=== PATIENT | male | born 1970 | race Caucasian/White ===

== ENCOUNTER 2017-09-21 14:07 | Emergency (ER) | payer BC ==
[~2017-09-21] VITALS: Ht 182.9 cm; Wt 85.3 kg
--- NOTE | 2017-09-21 13:48 | Emergency Room Report ---
History of Present Illness General Source: Patient, EMS Present Illness HPI The patient is a 46-year-old male brought in by EMS after reported seizure. Patient prior history of seizure disorder and takes Topamax as well as propranolol. The patient had recently quit drinking alcohol. He had prior history of seizures. Patient states his last drink was yesterday. Patient had been noted by EMS to have elevated heart rate. The patient denies any current locations of pain to his having fever. Allergies: Coded Allergies: No Known Allergies (Verified , 11/22/07) Patient History Past Medical History: see triage record Reviewed Nursing Documentation: PMH: Agreed, PSxH: Agreed Review of Systems All Other Systems: negative except mentioned in HPI Physical Exam Sp02 EP Interpretation: reviewed, normal General Appearance: normal inspection, well appearing, no apparent distress, alert, GCS 15 Head: atraumatic ENT: normal ENT inspection, hearing grossly normal, normal voice, other - tongue abrasion Neck: normal inspection, full range of motion, supple, no bony tend Respiratory: normal inspection, lungs clear, normal breath sounds, no respiratory distress, no retraction, no wheezing Cardiovascular #1: regular rate, rhythm, no edema Gastrointestinal: normal inspection, normal bowel sounds, non tender, soft, no guarding, no hernia Genitourinary: no CVA tenderness Musculoskeletal: normal inspection, back normal, normal range of motion Neurologic: normal inspection, alert, oriented x3, responsive, hurricane tracker III-XII nml as tested, speech normal Psychiatric: normal inspection, judgement/insight normal, mood/affect normal Skin: normal inspection, normal color, no rash Medical Decision Making Diagnostic Impression: Primary Impression: Seizure disorder Additional Impression: Alcohol withdrawal ER Course Patient presented for seizure. The differential diagnosis included was not limited to arrhythmia, thyroid storm, sepsis, anemia, myocardial infarction, alcohol withdrawal, stimulant abuse, caffeine overdose among others. The patient presented with signs consistent with alcohol withdrawal. Patient was given IV phenobarbital as well as IV thiamine and IV fluids. the patient improvement of his tremulousness. The patient states that he has a baseline tachycardia. This confirmed by his . Patient was advised not to drink alcohol. He was advised not to Drive or operate heavy machinery. Seizure report was sent to the [facility] Patient was noted to have improvement in his tachycardia. The patient is advised to follow up with primary care doctor in 1 -2 days. Patient is advised to return if any worsening condition or if any changes in status that are concerning. This report is dictated with [employer] head librarian software which may occasionally lead to discrepancies related to use of this software. Labs Test 09/21/17 14:40 White Blood Count 3.4 K/UL (4.8-10.8) Red Blood Count 4.50 M/UL (4.70-6.10) Hemoglobin 15.6 G/DL (14.2-18.0) Hematocrit 46.4 % (42.0-52.0) Mean Corpuscular Volume 103 FL (80-99) Mean Corpuscular Hemoglobin 34.5 PG (27.0-31.0) Mean Corpuscular Hemoglobin Concent 33.5 G/DL (32.0-36.0) Red Cell Distribution Width 12.1 % (11.6-14.8) Platelet Count 85 K/UL (150-450) Mean Platelet Volume 11.2 FL (6.5-10.1) Neutrophils (%) (Auto) % (45.0-75.0) Lymphocytes (%) (Auto) % (20.0-45.0) Monocytes (%) (Auto) % (1.0-10.0) Eosinophils (%) (Auto) % (0.0-3.0) Basophils (%) (Auto) % (0.0-2.0) Sodium Level 136 MMOL/L (136-145) Potassium Level 3.8 MMOL/L (3.5-5.1) Chloride Level 99 MMOL/L (98-107) Carbon Dioxide Level 19 MMOL/L (21-32) Anion Gap 18 mmol/L (5-15) Blood Urea Nitrogen 5 mg/dL (7-18) Creatinine 0.9 MG/DL (0.55-1.30) Estimat Glomerular Filtration Rate > 60 mL/min (>60) Glucose Level 160 MG/DL (74-106) Calcium Level 8.5 MG/DL (8.5-10.1) Total Bilirubin 2.3 MG/DL (0.2-1.0) Aspartate Amino Transf (AST/SGOT) 150 U/L (15-37) Alanine Aminotransferase (ALT/SGPT) 214 U/L (12-78) Alkaline Phosphatase 51 U/L (46-116) Troponin I 0.005 ng/mL (0.000-0.056) Total Protein 8.3 G/DL (6.4-8.2) Albumin 4.2 G/DL (3.4-5.0) Globulin 4.1 g/dL Albumin/Globulin Ratio 1.0 (1.0-2.7) EKG Diagnostic Results Rate: tachycardiac - 152 ST Segments: no acute changes ASA given to the pt in ED: No Rhythm Strip Diag. Results EP Interpretation: yes Rhythm: no PVC's, no ectopy, other - sinus tachycardia Status: improved Disposition: HOME, SELF-CARE Condition: Stable Scripts Chlordiazepoxide Hcl (CHLORDIAZEPOXIDE HCL) 25 Mg Capsule 25 MG PO THREE TIMES A DAY for For Anxiety, #20 CAP Prov: Edson Galindo 09/21/17 Edson Galindo Sep 21, 2017 13:48
[~2017-09-21 14:07] MED LIST: ACETAMINOPHEN-1 EAC1 ORAL; BACTRIM DS TAB1 EAC1 ORAL; ERYTHROMYCIN3.5 GM LEFT EYE
[2017-09-21 15:06] LABS: MEAN CORPUSCULAR HEMOGLOBIN 34.5 PG (27.0-31.0); MEAN CORPUSCULAR HGB CONC 33.5 G/DL (32.0-36.0); MEAN CORPUSCULAR VOLUME 103 FL (80-99); MEAN PLATELET VOLUME 11.2 FL (6.5-10.1); PLATELET COUNT 85 K/UL (150-450); RED CELL DISTRIBUTION WIDTH 12.1 % (11.6-14.8); WHITE BLOOD COUNT 3.4 K/UL (4.8-10.8)
[2017-09-21 15:17] VITALS: BP 136/82
[2017-09-21 15:23] LABS: CHLORIDE 99 MMOL/L (98-107); POTASSIUM 3.8 MMOL/L (3.5-5.1); SODIUM 136 MMOL/L (136-145)
[2017-09-21] MEDS ORDERED: Thiamine HCl 100 MG in D5W 55 ML IVPB ONE (15:30)
[2017-09-21] MEDS ORDERED: Thiamine HCl 100mg/ml 2 ml Inj ONE (15:31)
[2017-09-21 15:32] LABS: ANION GAP 18 mmol/L (5-15); CALCIUM 8.5 MG/DL (8.5-10.1); CARBON DIOXIDE 19 MMOL/L (21-32); CREATININE 0.9 MG/DL (0.55-1.30); GLOMERULAR FILTRATION RATE > 60 mL/min (>60)
[2017-09-21 15:42] LABS: ALANINE AMINOTRANSFERASE 214 U/L (12-78); ASPARTATE AMINO TRANSFERASE 150 U/L (15-37); TOTAL PROTEIN 8.3 G/DL (6.4-8.2)
[2017-09-21 16:24] LABS: BILIRUBIN,DIRECT 0.3 MG/DL (0.0-0.3)
[2017-09-21 16:25] LABS: BAND NEUTROPHILS % (MANUAL) 2 % (0-8); LYMPHOCYTES % (MANUAL) 6 % (20-45); MACROCYTES 1+; NEUTROPHILS % (MANUAL) 85 % (45-75); TOTAL CELLS COUNTED 100
[2017-09-21 16:26] LABS: BASOPHILS % (MANUAL) 0 % (0-2); EOSINOPHILS % (MANUAL) 0 % (0-3); PLATELET ESTIMATE DECREASED; PLATELET MORPHOLOGY NORMAL
[2017-09-21 16:54] LABS: ALCOHOL < 3 mg/dL
[2017-09-21] MEDS ORDERED: LORazepam Inj 2mg/ml 1ml IV ONE (17:30)
[2017-09-21] MEDS ORDERED: CHLORDIAZEPOXID25 MG PO (17:49)
[2017-09-21 18:12] VITALS: BP 136/82
--- NOTE | 2017-09-22 14:55 | Cardiology Report ---
APPROVED REPORT EKG Measurement Heart [id number] Sinus tachycardia Nonspecific T wave abnormality Abnormal ECG
== END 2017-09-21 18:12 | disposition home or self-care (01) ==
LOC: EDBD 14:07 → EMR 15:40
DX: G40.909 Epilepsy, unspecified, not intractable, without status epilepticus (principal); F10.239 Alcohol dependence with withdrawal, unspecified; Z79.899 Other long term (current) drug therapy
CPT/HCPCS: 36415; 80053; 82248; 84484; 85007; 85025; 93005; 96361; 96365; 96375; 96376; 99284; G0480; J2560; 80329

== ENCOUNTER 2018-03-27 12:56 | Emergency (ER) | payer BC ==
[~2018-03-27] VITALS: Ht 182.9 cm; Wt 95.3 kg
[~2018-03-27 12:56] MED LIST changes: +CHLORDIAZEPOXID25 MG PO
[2018-03-27] MEDS ORDERED: THIAMINE HCL100 MG ORAL (13:06)
[2018-03-27] MEDS ORDERED: VITAMIN D-32000 UNI1 PO (13:06)
[2018-03-27] MEDS ORDERED: VITAMIN E100 UNI2 ORAL (13:06)
[2018-03-27 13:26] VITALS: BP_SYST 146; BP_SYST 151; BP_DIAS 100; BP_DIAS 102
--- NOTE | 2018-03-28 08:49 | Emergency Room Report ---
History of Present Illness General Chief Complaint: Alcohol Intoxication Source: Patient Present Illness Allergies: Coded Allergies: No Known Allergies (Verified , 11/22/07) Nursing Documentation-PMH Hx Cardiac Problems: No Hx Hypertension: Yes Hx Pacemaker: No Hx Asthma: No Hx Seizures: Yes Physical Exam Vital Signs Date Time Temp Pulse Resp B/P (MAP) Pulse Ox O2 Delivery O2 Flow Rate FiO2 03/27/18 12:59 98.5 134 15 146/100 93 Room Air 98.4 Medical Decision Making Diagnostic Impression: Primary Impression: Acute alcoholic intoxication ER Course Patient left without being seen Last Vital Signs Date Time Temp Pulse Resp B/P (MAP) Pulse Ox O2 Delivery O2 Flow Rate FiO2 03/27/18 13:26 123 16 151/102 94 Room Air 03/27/18 13:26 98.5 98.4 Status: unchanged Disposition: LEFT W/OUT BEING SEEN Condition: Stable Referrals: NOT APPLICABLE THIS PATIENT,RE (PCP) Ervin Yeung MD Mar 28, 2018 08:48
== END 2018-03-27 13:26 | disposition left against medical advice (07) ==
LOC: EMR 13:20
DX: F10.129 Alcohol abuse with intoxication, unspecified (principal); I10 Essential (primary) hypertension; Z53.21 Procedure and treatment not carried out due to patient leaving prior to being seen by health care provider
CPT/HCPCS: 99281

== ENCOUNTER 2019-01-05 15:35 | Emergency (ER) | payer BC ==
[~2019-01-05] VITALS: Ht 175.3 cm; Wt 81.6 kg
[~2019-01-05 15:35] MED LIST changes: +THIAMINE HCL100 MG ORAL; +VITAMIN D-32000 UNI1 PO; +VITAMIN E100 UNI2 ORAL
--- NOTE | 2019-01-05 16:10 | Emergency Room Report ---
History of Present Illness General Chief Complaint: Alcohol Intoxication Source: Patient Present Illness HPI Patient is a 48-year-old male who presented after increased generalized weakness and palpitations. Patient reports having increased generalized pain as well as rapid heartbeat. He reports having prior history of alcohol abuse and states he normally drinks 2 bottles of alcohol daily. He reports having increased tremulousness as well as increased shaking for the past few days. He states he last had alcohol just prior to arrival. Allergies: Coded Allergies: No Known Allergies (Verified , 11/22/07) Patient History Past Medical History: see triage record Reviewed Nursing Documentation: PMH: Agreed; PSxH: Agreed Nursing Documentation-PMH Hx Cardiac Problems: No Hx Hypertension: Yes Hx Pacemaker: No Hx Asthma: No Hx Seizures: Yes Review of Systems All Other Systems: negative except mentioned in HPI Physical Exam Vital Signs Date Time Temp Pulse Resp B/P (MAP) Pulse Ox O2 Delivery O2 Flow Rate FiO2 01/05/19 15:40 97.9 106 18 160/100 98 Room Air Sp02 EP Interpretation: reviewed, normal General Appearance: normal inspection, well appearing, no apparent distress, alert, GCS 15, Chronically Ill Head: atraumatic ENT: normal ENT inspection, hearing grossly normal, normal voice Neck: normal inspection, full range of motion, supple, no bony tend Respiratory: normal inspection, lungs clear, normal breath sounds, no respiratory distress, no retraction, no wheezing Cardiovascular #1: regular rate, rhythm, no edema Gastrointestinal: normal inspection, normal bowel sounds, non tender, soft, no guarding, no hernia Genitourinary: no CVA tenderness Musculoskeletal: normal inspection, back normal, normal range of motion Neurologic: normal inspection, alert, oriented x3, responsive, x ray consultant III-XII nml as tested, speech normal, other - tremor Psychiatric: normal inspection, judgement/insight normal, mood/affect normal Skin: normal inspection, normal color, no rash Medical Decision Making Diagnostic Impression: Primary Impression: Acute alcoholic intoxication ER Course Patient presented for agitation. Differential diagnosis include was not limited to substance abuse, alcohol withdrawal, alcohol intoxication among others. Because of complexity of patient's case laboratory testing and imaging studies were ordered. Patient was noted to be somewhat tremulous and was given Ativan IV. Laboratory testing showed elevated blood alcohol level consistent with alcohol intoxication.On direct questioning patient denies any suicidal thoughts. Patient was given prescription for Librium. He is advised outpatient rehab follow-up. Patient was discharged home with . Patient was noted to be ambulatory without assistance at the time of discharge. Labs Test 01/05/19 16:38 Sodium Level 142 MMOL/L (136-145) Potassium Level 3.5 MMOL/L (3.5-5.1) Chloride Level 100 MMOL/L (98-107) Carbon Dioxide Level 25 MMOL/L (21-32) Anion Gap 17 mmol/L (5-15) Blood Urea Nitrogen 13 mg/dL (7-18) Creatinine 0.8 MG/DL (0.55-1.30) Estimat Glomerular Filtration Rate > 60 mL/min (>60) Glucose Level 103 MG/DL (74-106) Calcium Level 7.9 MG/DL (8.5-10.1) Phosphorus Level 3.3 MG/DL (2.5-4.9) Magnesium Level 2.2 MG/DL (1.8-2.4) Total Bilirubin 1.8 MG/DL (0.2-1.0) Direct Bilirubin 0.6 MG/DL (0.0-0.3) Aspartate Amino Transf (AST/SGOT) 162 U/L (15-37) Alanine Aminotransferase (ALT/SGPT) 145 U/L (12-78) Alkaline Phosphatase 55 U/L (46-116) Troponin I 0.016 ng/mL (0.000-0.056) Total Protein 8.0 G/DL (6.4-8.2) Albumin 4.0 G/DL (3.4-5.0) Globulin 4.0 g/dL Albumin/Globulin Ratio 1.0 (1.0-2.7) Salicylates Level 2.5 ug/mL (2.8-20) Acetaminophen Level < 2 MCG/ML (10-30) Serum Alcohol 367 mg/dL EKG Diagnostic Results Rate: normal Rhythm: NSR ST Segments: no acute changes Last Vital Signs Date Time Temp Pulse Resp B/P (MAP) Pulse Ox O2 Delivery O2 Flow Rate FiO2 01/05/19 15:40 97.9 106 18 160/100 98 Room Air Status: improved Disposition: HOME, SELF-CARE Condition: Stable Scripts Chlordiazepoxide Hcl (CHLORDIAZEPOXIDE HCL) 25 Mg Capsule 25 MG PO THREE TIMES A DAY for For Anxiety, #20 CAP Prov: Edson Galindo MD 01/05/19 Edson Galindo MD Jan 05, 2019 16:10
[2019-01-05] MEDS ORDERED: Thiamine HCl 100 MG in D5W 55 ML IV ONE (16:15)
[2019-01-05] MEDS ORDERED: LORazepam Inj 2mg/ml 1ml IV ONE (16:15)
[2019-01-05] MEDS ORDERED: Magnesium Sulfate 2,000 MG in NS 100 ML IV ONE (16:15)
[2019-01-05 17:23] LABS: ANION GAP 17 mmol/L (5-15); BLOOD UREA NITROGEN 13 mg/dL (7-18); CALCIUM 7.9 MG/DL (8.5-10.1); CARBON DIOXIDE 25 MMOL/L (21-32); CHLORIDE 100 MMOL/L (98-107); CREATININE 0.8 MG/DL (0.55-1.30); POTASSIUM 3.5 MMOL/L (3.5-5.1); SODIUM 142 MMOL/L (136-145)
[2019-01-05 17:33] LABS: ALANINE AMINOTRANSFERASE 145 U/L (12-78); ALKALINE PHOSPHATASE 55 U/L (46-116); ASPARTATE AMINO TRANSFERASE 162 U/L (15-37); BILIRUBIN,TOTAL 1.8 MG/DL (0.2-1.0)
[2019-01-05 17:45] LABS: BILIRUBIN,DIRECT 0.6 MG/DL (0.0-0.3)
[2019-01-05 18:01] LABS: PHOSPHORUS 3.3 MG/DL (2.5-4.9)
[2019-01-05 19:00] VITALS: BP 136/86
[2019-01-05] MEDS ORDERED: CHLORDIAZEPOXID25 MG PO (20:33)
[2019-01-05 21:08] VITALS: BP 130/84
--- NOTE | 2019-01-06 12:27 | Cardiology Report ---
APPROVED REPORT EKG Measurement Heart [id number] Normal sinus rhythm Normal ECG
== END 2019-01-05 21:08 | disposition home or self-care (01) ==
LOC: EDBD 15:35 → EMR 16:36
DX: F10.129 Alcohol abuse with intoxication, unspecified (principal); R00.2 Palpitations; I10 Essential (primary) hypertension; G40.909 Epilepsy, unspecified, not intractable, without status epilepticus
CPT/HCPCS: 80053; 82248; 83735; 84100; 84484; 93005; 96365; 96366; 96367; 96375; 99284; G0480; J3475; 80329